=== PATIENT | male | born 1985 | race Caucasian/White ===

== ENCOUNTER 2016-10-17 13:40 | Emergency (ER) | payer MEDICAID ==
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
[2016-10-17] MEDS ORDERED: ACETAMINOPHEN 325 MG TAB PO ONE (15:04)
[2016-10-17] MEDS ORDERED: IBUPROFEN 600 MG TAB PO ONE (15:04)
[2016-10-17] MEDS ORDERED: ONDANSETRON DISINTEGRATING 4 MG TAB PO ONE (15:04)
[2016-10-17 15:44] VITALS: BP 142/86; PULSE 85; RESP 20; TEMP 97.9; O2SAT 96
== END 2016-10-17 15:44 | disposition home or self-care (01) ==
DX: S06.0X0A Concussion without loss of consciousness, initial encounter (principal); F17.200 Nicotine dependence, unspecified, uncomplicated; W22.8XXA Striking against or struck by other objects, initial encounter; Y93.01 Activity, walking, marching and hiking
CPT/HCPCS: 82947-QW

== ENCOUNTER 2016-10-20 00:04 | Emergency (ER) | payer MEDICAID ==
[2016-10-20] MEDS ORDERED: LORazepam 2 MG/ML INJ ONE (00:20)
[2016-10-20] MEDS ORDERED: LORazepam 2 MG/ML INJ IVP ONE ×3 (00:25→04:39)
[2016-10-20 00:28] VITALS: RESP 16
--- NOTE | 2016-10-20 00:33 | CPEKG ---
Heart Rate: 87 RR Interval: 690 P-R Interval: 148 QRSD Interval: 78 QT Interval: 384 QTC Interval: 462 P Milford: 66 QRS Milford: 68 T Wave Milford: 47 EKG Severity - NORMAL ECG - EKG Impression: SINUS RHYTHM Electronically Signed By: Cady Adkins 20-Oct-2016 06:37:34
[2016-10-20 00:37] LABS: % IMMATURE GRANULYOCYTES 0.1 % (0.0-1.1); ABSOLUTE IMMATURE GRANULOCYTES 0.01 10^3/uL (0.00-0.10); ADD DIFF? NO; ADD MORPH? NO; ADD SCAN? NO; ATYPICAL LYMPHOCYTE FLAG 0 (0-99); FRAGMENT RBC FLAG 0 (0-99); HEMOGLOBIN 19.7 g/dL (13.7-17.5); LEFT SHIFT FLG 0 (0-99); LIPEMIA HEMOLYSIS FLAG 90 (0-99); MEAN CELL HEMOGLOBIN 32.7 pg (27.9-34.1); MEAN CELL HEMOGLOBIN CONCENTR. 36.5 g/dL (32.4-36.7); MEAN CELL VOLUME 89.6 fL (81.5-99.8); MEAN PLATELET VOLUME 8.2 fL (8.7-11.7); PLATELET CLUMPS FLAG 0 (0-99); PLATELET COUNT 290 10^3/uL (150-400); RED BLOOD CELL COUNT 6.03 10^6/uL (4.40-6.38); RED CELL DISTRIBUTION WIDTH 14.5 % (11.5-15.2)
[2016-10-20 00:41] LABS: ALANINE AMINOTRANSFERASE 107 IU/L (21-72); ALBUMIN 5.3 g/dL (3.5-5.0); ALKALINE PHOSPHATASE 114 IU/L (38-126); ANION GAP 17 mEq/L (8-16); ASPARTATE AMINOTRANSFERASE 119 IU/L (17-59); BILIRUBIN,TOTAL 0.6 mg/dL (0.1-1.4); CALCIUM 9.7 mg/dL (8.5-10.4); CARBON DIOXIDE 27 mEq/l (22-31); CHLORIDE 101 mEq/L (97-110); CREATININE 0.9 mg/dL (0.7-1.3); ETHANOL SERUM 182 mg/dL (0-10); GLOMERULAR FILTRATION RATE > 60; GLUCOSE 93 mg/dL (70-100); MAGNESIUM 2.1 mg/dL (1.6-2.3); POTASSIUM 4.3 mEq/L (3.5-5.2); SODIUM 145 mEq/L (134-144); TOTAL PROTEIN 8.6 g/dL (6.3-8.2)
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
[2016-10-20 03:48] VITALS: O2SAT 95
[2016-10-20] MEDS ORDERED: CHLORDIAZEPOXIDE 25MG PREPK#6 BTL TAKEHOME ONE (04:50)
[2016-10-20 06:05] VITALS: BP 119/62; PULSE 75; TEMP 98.1
== END 2016-10-20 06:04 | disposition home or self-care (01) ==
LOC: EDUNIT#
DX: G40.909 Epilepsy, unspecified, not intractable, without status epilepticus (principal); F13.239 Sedative, hypnotic or anxiolytic dependence with withdrawal, unspecified; F17.200 Nicotine dependence, unspecified, uncomplicated
CPT/HCPCS: 80305; 96374; G0480

== ENCOUNTER 2018-01-10 07:30 | Emergency (ER) | payer MEDICAID ==
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
[2018-01-10 09:05] VITALS: BP 155/105; PULSE 78; RESP 18; TEMP 98.2; O2SAT 96
== END 2018-01-10 09:03 | disposition home or self-care (01) ==
DX: S43.401A Unspecified sprain of right shoulder joint, initial encounter (principal); S53.401A Unspecified sprain of right elbow, initial encounter; S00.31XA Abrasion of nose, initial encounter; S50.811A Abrasion of right forearm, initial encounter; S60.512A Abrasion of left hand, initial encounter; S00.81XA Abrasion of other part of head, initial encounter; F17.200 Nicotine dependence, unspecified, uncomplicated; X58.XXXA Exposure to other specified factors, initial encounter; Y99.8 Other external cause status; Y93.89 Activity, other specified

== ENCOUNTER 2018-01-22 09:37 | Emergency (ER) | payer MEDICAID ==
[2018-01-22] MEDS ORDERED: NS 1,000 ML IV ONE (10:25)
[2018-01-22] MEDS ORDERED: LORazepam 2 MG/ML INJ IVP ONE (10:25)
--- NOTE | 2018-01-22 10:27 | EDPHY ---
H & P Stated Complaint: no BM in 10 days - Personal History Current Tetanus/Diphtheria Vaccine: Unsure Current Tetanus Diphtheria and Acellular Pertussis (TDAP): Unsure - Medical/Surgical History Hx Asthma: No Hx Chronic Respiratory Disease: No Hx Diabetes: No Hx Cardiac Disease: No Hx Renal Disease: No Hx Cirrhosis: No Hx Alcoholism: Yes Hx HIV/AIDS: No Hx Splenectomy or Spleen Trauma: No Other PMH: oral surgery, anxiety, panic attacks, ETOH abuse, head injuries - Social History Smoking Status: Current every day smoker Time Seen by Provider: 01/22/18 10:00 HPI/ROS: CHIEF COMPLAINT: "I haven't pooped in 10 days" HISTORY OF PRESENT ILLNESS: 33-year-old male complaining of constipation for the past 10 days. He has been passing gas. He attempted to manually disimpact himself notes that he encountered several pieces of hard stool that he was unable to remove. He is tolerating full oral intake with no nausea or vomiting. He will experience intermittent abdominal cramping. No urinary abnormality. No back pain. No radicular symptoms. He also states that he has been drinking more alcohol than usual., last drink of alcohol was 1 day ago. He is complaining feeling tremulous. No seizure. No hallucination. No suicidal or homicidal ideation. PRIMARY CARE PROVIDER: REVIEW OF SYSTEMS: A ten point review of systems was performed and is negative with the exception of the items mentioned in the HPI PAST MEDICAL & SURGICAL HISTORY: Anxiety SOCIAL HISTORY: Positive alcohol use PHYSICAL EXAM (Prior to examination, patient consented to physical exam, hands were washed and my usual and customary physical exam procedures followed) 1) GENERAL: Well-developed, well-nourished, alert and oriented. Appears anxious 2) HEAD: Normocephalic, atraumatic 3) HEENT: Pupils equal, round, reactive to light bilaterally. Sclera anicteric. 4) NECK: Full range of motion, no meningeal signs. 5) LUNGS: Clear auscultation bilaterally, no wheezes, no rhonchi, no retractions. 6) HEART: Regular rate and rhythm, no murmur, no heave, no gallop. 7) ABDOMEN: No guarding, no rebound, no focal tenderness, negative McBurney's, negative Vickers's, negative Rovsing's, negative peritoneal sign, 8) MUSCULOSKELETAL: Moving all extremities, no focal areas of tenderness, no obvious trauma. No peripheral edema or discoloration. 9) BACK: No obvious trauma, no visual or palpable abnormality. 10) SKIN: No rash, no petechiae. 11) Psychiatric: Patient is oriented X 3, there is no agitation. Tremulous DIFFERENTIAL DIAGNOSIS: In no particular include but limited to constipation, bowel obstruction, acute alcohol withdrawal, delirium tremens (Dave,Peter Tammy) Constitutional: Initial Vital Signs Temperature (C) 36.8 C 01/22/18 09:42 Heart Rate 115 H 01/22/18 09:42 Respiratory Rate 18 01/22/18 09:42 Blood Pressure 148/91 H 01/22/18 09:42 O2 Sat (%) 97 01/22/18 09:42 O2 Delivery Mode Room Air O2 (L/minute) 2 Allergies/Adverse Reactions: No Known Allergies Allergy (Verified 01/22/18 09:42) Home Medications: Medication Instructions Recorded Clonidine 10/17/16 Amitriptyline HCl 01/10/18 Gabapentin 01/10/18 Topamax 01/10/18 Valium 01/10/18 Peg 3350/Na Sulf,Bicarb,Cl/KCl 1,000 ml PO ONCE #4000 ml 01/22/18 [Golytely (RX)] Sod Phos,M-B/Na Phos,Di-Ba [Fleet 133 ml RC DAILY #1 enema 01/22/18 Enema] Medical Decision Making ED Course/Re-evaluation: 10:20 a.m.: Patient noted to be tachycardic in setting of more than likely acute alcohol withdrawal. Will administer IV fluids, benzodiazepine and re- evaluated. Doubt delirium tremens. 11:17 a.m.: Re-evaluation after IV saline and benzodiazepine. His tremors have resolved. Heart rate in the 90s. His abdomen is reexamined and remained soft no guarding no rebound no McBurney's point pain, negative Vickers's. I discussed his laboratory studies. He is noted to have elevated LFTs. Doubt acute cholecystitis. He is noted to have a history of heavy alcohol use. We discussed alcohol moderation and importance of follow-up with his LFTs. At this time I think that acute surgical abdominal pathology is less than likely. Doubt acute cholecystitis. Doubt acute appendicitis. Plan will be discharge with GoLYTELY and enema. Usual customary discharge precautions instructions provided. Care of patient under supervision of secondary supervising physician Dr San . (Peter Acosta) I did not see this patient while he was in the emergency department. However his care was discussed with the PA while the patient was in the department. I agree with treatment plan and management (Doug San) - Data Points Laboratory Results: Laboratory Results 01/22/18 10:25 01/22/18 10:25 Medications Given: Discontinued Medications Sodium Chloride (Ns) 1,000 mls @ 0 mls/hr IV ONCE ONE PRN Reason: Wide Open Stop: 01/22/18 10:26 Last Admin: 01/22/18 10:34 Dose: 1,000 mls Lorazepam (Ativan Injection) 2 mg IVP EDNOW ONE Stop: 01/22/18 10:26 Last Admin: 01/22/18 10:33 Dose: 2 mg Departure - Departure Disposition: Home, Routine, Self-Care Clinical Impression: Constipation, Alcohol withdrawal Condition: Good Instructions: Constipation (ED), Alcohol Withdrawal (ED) Additional Instructions: Seek immediate medical attention if you develop new or worsening symptoms, if you develop fevers, chills, inability to tolerate oral intake or any other symptoms that concerns you. Referrals: [facility],. [Clinic] - 1-2 days without fail Prescriptions: Peg 3350/Na Sulf,Bicarb,Cl/KCl [Golytely (RX)] 1,000 ml PO ONCE #4000 ml Sod Phos,M-B/Na Phos,Di-Ba [Fleet Enema] 133 ml RC DAILY #1 enema
[2018-01-22 10:31] LABS: PLATELET COUNT 204 10^3/uL (150-400)
[2018-01-22 11:26] VITALS: BP 128/75
--- NOTE | 2018-01-22 16:55 | ASMTCMCOM ---
CM Note CM Note Notes: Pt presented to the ED for constipation, chronic sciatica pain, medication refill and various other reasons. Spoke with patient about following up with [facility]. Pt states he hasn't been seen there for awhile but is normally seen at [facility]; pt is also followed at [facility]. Pt's case picker at [facility] is Jo-Ann Soria. Pt states she has been assisting him with getting a discounted bus pass, possible housing, etc. Spoke with BRICE Fang Spike Machine Feeder at at [facility] ([phone]) and she said pt was last seen 12/12/17; she will also e-mail Jo-Ann at [facility] notifying her of pt's ED visit and request for medication refills, etc. Pt states he doesn't have any minutes on his "Obama phone" but he can receive e-mails and make calls from his computer. Annalisa states they will try to reach out to the patient via their portal. Pt states he "lives in toxic environment" with his father so "sometimes I rather sleep on the streets than sleep there." Pt states he has been to [facility] to [facility] but he is unable to tell me whether he has completed Coordinated Entry or not. It sounds more like patient is not completely homeless; he either stays with his father or friends. Pt also states he has a court date next week; he received a ticket for "having an open container in public." Per chart review pt has a history of substance abuse including ETOH, cocaine and benzodiazepines. Pt strongly encouraged to follow up with and [facility]. Pt provided a Medicaid cab to his father's house per his request. CM available for further assistance. Date Signed: 01/22/2018 04:54 PM Electronically Signed By:Deepika Christian RN
--- NOTE | 2018-01-22 16:58 | ASDISCHSUM ---
Discharge Information Plan Status:Home with No Needs Medically Cleared to Leave: Discharge Date:01/22/2018 11:26 AM CM D/C Disposition:Home, Routine, Self-Care ADT D/C Disposition:Home, Routine, Self-Care Projected Discharge Date:01/22/2018 11:26 AM Transportation at D/C:Medicaid Transportation Discharge Delay Reason: Follow-Up Date:01/22/2018 11:26 AM Discharge Slot: Final Diagnosis: Placement Information Patient Contact Information Contact Name:TATE Relationship:Father Address:[address] [facility] City:[place] Alternate Phone: [facility]/Zip Code:[place] [address] Email: Financial Information Financial Class:Medicaid 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 Spoke with patient about following up with [facility]. Pt states he hasn't been seen there for awhile but is normally seen at [facility]; pt is also followed at [facility]. Pt's welfare case worker at [facility] is Jo-Ann Soria. Pt states she has been assisting him with getting a discounted bus pass, possible housing, etc. Spoke with BRICE Fang Wire Weaver at at [facility] ([phone]) and she said pt was last seen 12/12/17; she will also e-mail Jo-Ann at [facility] notifying her of pt's ED visit and request for medication refills, etc. Pt states he doesn't have any minutes on his "Obama phone" but he can receive e-mails and make calls from his computer. Annalisa states they will try to reach out to the patient via their portal. Pt states he "lives in toxic environment" with his father so "sometimes I rather sleep on the streets than sleep there." Pt states he has been to [facility] but he is unable to tell me whether he has completed Coordinated Entry or not. It sounds more like patient is not completely homeless; he either stays with his father or friends. Pt also states he has a court date next week; he received a ticket for "having an open container in public." Per chart review pt has a history of substance abuse including ETOH, cocaine and benzodiazepines. Pt strongly encouraged to follow up with [facility] and [facility]. Pt provided a Medicaid cab to his father's house per his request. CM available for further assistance. Date Signed: 01/22/2018 04:54 PM Electronically Signed By:Deepika Christian RN Intervention Information Intervention Type:Transportation Date of Service:01/22/2018 04:54 PM Patient Type:Emergency Room Staff Member:BRICE Christian Sharon Hours:0.5 Discipline:Installation Superintendent Severity: Comment:Medicaid cab conf# [id number] Intervention Type:Health Clinic Date of Service:01/22/2018 04:54 PM Patient Type:Emergency Room Staff Member:BRICE Christian [place] Hours:0.25 Discipline:Installation Superintendent Severity: Comment:[facility] coordination/communica tion Intervention Type:Education Family/Patient Date of Service:01/22/2018 04:54 PM Patient Type:Emergency Room Staff Member:BRICE Christian Sharon Hours:0.5 Discipline:Installation Superintendent Severity: Comment:Various education re: outpatient follo w up care and resources.
== END 2018-01-22 11:26 | disposition home or self-care (01) ==
DX: K59.00 Constipation, unspecified (principal); F10.230 Alcohol dependence with withdrawal, uncomplicated; F17.200 Nicotine dependence, unspecified, uncomplicated
CPT/HCPCS: 96374; J2060

== ENCOUNTER 2018-07-14 11:16 | Emergency (ER) | payer MEDICAID ==
--- NOTE | 2018-07-14 11:51 | EDPHY ---
H & P Time Seen by Provider: 07/14/18 11:41 HPI/ROS: CHIEF COMPLAINT: Left lateral ankle pain HISTORY OF PRESENT ILLNESS: 33-year-old male arrives via private vehicle complaining of acute left lateral ankle pain. He has prior history of avulsion fracture to the lateral malleolus, rolled his foot this morning, as he exited this supermarket. No foot pain. No proximal tibia or fibula pain. No fall from height. No calcaneus pain. PHYSICAL EXAM (Prior to examination, patient consented to physical exam, hands were washed and my usual and customary physical exam procedures followed) 1) GENERAL: Well-developed, well-nourished, alert and oriented. Appears to be in no acute distress. 2) HEAD: Normocephalic 3) HEENT: Pupils equal, round, reactive to light bilaterally. 4) LUNGS: Breathing comfortably. 5) MUSCULOSKELETAL: Tender to palpation with soft tissue swelling to the left lateral malleolus. proximal tibia and fibula nontender .5th MT nontender negative Murray test, compartments soft 6) SKIN: Intact 7) VASCULAR: DP,PT pulses and cap refill present and brisk DIFFERENTIAL DIAGNOSIS: in no particular order including but not limited to fracture, sprain, compartment syndrome Procedure: Crutches indications for crutch use discussed with patient. Patient fitted for crutches by ER staff. Observed ambulating with crutches. I think the patient has the capacity to safely use crutches. Usual and customary crutch walking precautions provided Procedure: Splint A mirela boot splint was applied by ER ecologist technician. After application of the splint I returned and re-examined the patient. The splint was adequately immobilizing the joint and distal to the splint the patient's circulation and sensation were intact. Patient shows no signs of compartment syndrome. Was given orthopedic precautions. Smoking Status: Current every day smoker Constitutional: Initial Vital Signs Temperature (C) 36.7 C 07/14/18 11:31 Heart Rate 101 H 07/14/18 11:31 Respiratory Rate 18 07/14/18 11:31 O2 Sat (%) 98 07/14/18 11:31 O2 Delivery Mode Room Air Allergies/Adverse Reactions: No Known Allergies Allergy (Verified 05/22/18 09:17) Home Medications: Medication Instructions Recorded Clonidine 10/17/16 Amitriptyline HCl 01/10/18 Gabapentin 01/10/18 Valium 01/10/18 MDM/Departure - MDM Imaging: I viewed and interpreted images myself ED Course/Re-evaluation: 12:10 p.m.: Re-evaluation with serial exams. Neurovascular intact. Soft compartments. Plan will be discharged with my usual and customary orthopedic precautions and instructions I saw this patient independently based on established practice protocols. Care of patient under supervision of secondary supervising physician Dr Grant Vogt. - Depart Disposition: Home, Routine, Self-Care Clinical Impression: Left ankle sprain Qualifiers: Encounter type: initial encounter Involved ligament of ankle: unspecified ligament Qualified Code(s): S93.402A - Sprain of unspecified ligament of left ankle, initial encounter Condition: Good Instructions: Ankle Sprain (ED) Additional Instructions: Return to the ER immediately if you experience discoloration, have worsening pain, numbness, tingling, or any other symptoms that concern you. If you received x-rays in the emergency department today, be advised, that ligamentous , tendon, muscular, and other non-bony injury cannot be fully ruled out. Try to keep your affected extremity elevated above the level of your chest, and keep cold packs on the affected area, for the next 48 hours. Referrals: Nikolas Johsi MD [Medical Doctor] - 2-3 days, call for appt.
[2018-07-14 12:39] VITALS: BP 159/99
== END 2018-07-14 12:38 | disposition home or self-care (01) ==
DX: S93.402A Sprain of unspecified ligament of left ankle, initial encounter (principal)
CPT/HCPCS: L4386

== ENCOUNTER 2019-02-13 00:54 | Emergency (ER) | payer MEDICAID ==
[2019-02-13 01:01] VITALS: BP 125/79
--- NOTE | 2019-02-13 01:10 | EDPHY ---
H & P Stated Complaint: ETOH, erratic behavior, was waving knife around, Improved upon arrival Time Seen by Provider: 02/13/19 01:08 HPI/ROS: Chief Complaint: Alcohol intoxication HPI: 34-year-old male was found wandering around the [employer] on [address]. The patient was holding a knife. Patient has been somewhat erratic per police and brought in in handcuffs. Patient has a history of PTSD. Missed a history of depression is taking multiple medications. Denies being suicidal at this time. He has been compliant with medications. He admits to drinking multiple shots of vodka tonight. Did not fall down. Did not hit his head. Currently is without complaint. ROS: 10 systems were reviewed and were negative except those elements noted in the HPI. PMH: PTSD Social History: Positive smoking, positive alcohol, no recreational drug use Family History: non-contributory Physical Exam: Gen: Awake, Alert, slurred speech, smells of alcohol HEENT: Nose: no rhinorrhea Eyes: PERRLA, EOMI Mouth: Moist mucosa Neck: Supple, no JVD Chest: nontender, lungs clear to auscultation Heart: S1, S2 normal, no murmur Abd: Soft, non-tender, no guarding Back: no CVA tenderness, no midline tenderness Ext: no edema, non-tender Skin: no rash Neuro: CN II-XII intact, Sensation grossly intact, Strength 5/5 in bilateral upper and lower extremities - Personal History Current Tetanus/Diphtheria Vaccine: Unsure Current Tetanus Diphtheria and Acellular Pertussis (TDAP): Unsure - Medical/Surgical History Hx Asthma: No Hx Chronic Respiratory Disease: No Hx Diabetes: No Hx Cardiac Disease: No Hx Renal Disease: No Hx Cirrhosis: No Hx Alcoholism: Yes Hx HIV/AIDS: No Hx Splenectomy or Spleen Trauma: No Other PMH: anxiety, panic attacks, ETOH abuse, head injuries/ tbi, L ankle fx - Social History Smoking Status: Current every day smoker Constitutional: Initial Vital Signs Temperature (C) 37.2 C 02/13/19 00:58 Heart Rate 119 H 02/13/19 00:58 Respiratory Rate 20 02/13/19 00:58 Blood Pressure 125/79 H 02/13/19 00:58 O2 Sat (%) 94 02/13/19 00:58 O2 Delivery Mode Room Air Allergies/Adverse Reactions: No Known Allergies Allergy (Verified 02/13/19 00:58) Home Medications: Medication Instructions Recorded Clonidine 10/17/16 Amitriptyline HCl 01/10/18 Gabapentin 01/10/18 Valium 01/10/18 Topiramate [Topamax 25MG (*)] 02/13/19 Medical Decision Making ED Course/Re-evaluation: Patient is ambulating unassisted the emergency department. He is medically cleared for the arc. Departure - Departure Disposition: Law Enforcement/Court/Retirement Clinical Impression: Alcoholic intoxication Condition: Fair Instructions: Alcohol Intoxication (ED) Referrals: Patient,NotPresent [Primary Care Provider] - As per Instructions
== END 2019-02-13 01:50 ==
LOC: EDUNIT#
DX: F10.129 Alcohol abuse with intoxication, unspecified (principal)